=== PATIENT | male | born 1960 | race African-American/Black ===

== ENCOUNTER 2022-07-12 14:01 | Emergency (ER) | payer MEDICAID ==
[~2022-07-12] VITALS: Ht 180.3 cm; Wt 79.0 kg
[2022-07-12 14:27] VITALS: BP 153/73
== END 2022-07-12 15:37 | disposition home or self-care (01) ==
LOC: ER 14:02
DX: J02.9 Acute pharyngitis, unspecified (principal)
CPT/HCPCS: 87081; 87880; 99283

== ENCOUNTER 2022-09-16 23:05 | Emergency (ER) | payer MEDICAID ==
[~2022-09-16] VITALS: Ht 180.3 cm; Wt 81.8 kg
[2022-09-16 23:40] VITALS: BP 127/79
[2022-09-17] MEDS ORDERED: ARIP10TA9 PO
== END 2022-09-17 00:14 | disposition home or self-care (01) ==
LOC: ER 23:05
DX: F31.9 Bipolar disorder, unspecified (principal); Z76.0 Encounter for issue of repeat prescription; F17.200 Nicotine dependence, unspecified, uncomplicated; Z79.899 Other long term (current) drug therapy
CPT/HCPCS: 99281